=== PATIENT | male | born 1960 | race Caucasian/White ===

== ENCOUNTER → 2020-07-12 | Day surgery (SDC) | payer BC ==
[2020-07-06 17:23] VITALS: BMI 25.1
[~2020-07-12] MED LIST: ACETAMINOPHEN 325 MG TABLET (FP) ONE; DEXAMETHASONE SOD PHOSPHATE 4 MG/1 ML VIAL ONE; EPHEDRINE SULFATE/0.9% NACL/PF 50 MG/10 ML SYRINGE NR ONE; ERYTHROMYCIN 0.5% OPHTHALMIC OINTMENT 3.5 GM TUBE ONE; KETOROLAC TROMETHAMINE 30 MG/1 ML VIAL ONE; LIDOCAINE 1%/EPI 1:100000 (20 ML MULTI DOSE VIAL) ONE; LIDOCAINE HCL 2% JELLY (5 ML/TUBE) ONE; MIDAZOLAM HCL 2 MG/2 ML SINGLE DOSE VIAL ONE; ONDANSETRON 4 MG/2 ML VIAL IVPUSH PRN; ONDANSETRON 4 MG/2 ML VIAL ONE; OXYMETAZOLINE 0.05% NASAL SOLUTION 15 ML BOTTLE NS ONE; POVIDONE-IODINE 5% OPHTHALMIC PREP 30 ML SOLUTION ONE; PROMETHAZINE HCL 25 MG/1 ML VIAL IVPUSH PRN; PROPOFOL 20 ML ONE; TETRACAINE 0.5% OPHTH SOLN 2 ML BOTTLE ONE; ceFAZolin SODIUM 1 GM VIAL ONE; oxyCODONE HCL 5 MG TABLET ONE; oxyCODONE HCL 5 MG TABLET PO PRN
[2020-07-12 10:02] VITALS: TEMP 97.9
[2020-07-12 10:36] VITALS: BP 142/84; PULSE 58
== END | disposition home or self-care (01) ==
LOC: FASU 06:34 → EDBD 07:30
PROVIDERS: ATTEND Ophthalmology
PROC: 08BN0ZZ Excision of Right Upper Eyelid, Open Approach (ICD-10-PCS; principal; 2020-07-12 08:21)
DX: D22.111 Melanocytic nevi of right upper eyelid, including canthus (principal)
CPT/HCPCS: 88305-TC; 94760